=== PATIENT | female | born 1970 | race Caucasian/White ===

== ENCOUNTER 2025-06-09 00:46 | Day surgery (SDC) | payer OTHER, SELFPAY ==
[2025-05-25 14:34] VITALS: BMI 51.5
[2025-06-09 07:50] VITALS: BP 148/92; PULSE 81; RESP 18; TEMP 36.5; O2SAT 97; BMI 50.9
[2025-06-09] MEDS: LACTATED RINGERS 1,000 ML 150 ML IV CONT (08:13)
[2025-06-09 08:16] LABS: BEDSIDEPREGUCG Negative (Negative)
--- NOTE | 2025-06-09 08:43 | PM.HPGS ---
History of Present Illness History of Present Illness Consent: Risks, benefits, and alternatives have been discussed and questions answered. Patient agrees to proceed with procedure. Chief complaint: Screening Narrative: Arline Grady is a 54 year old female here for screening colonoscopy, last one 11 years ago Review of Systems Review of Systems: All systems reviewed & are unremarkable except as noted in HPI and below PMFSH Past Medical History Medical History (Updated 12/04/24 @ 09:29 by Yang Mcmahon APRN) TRUNG (obstructive sleep apnea) Horseshoe kidney PIH ( induced hypertension) A-fib Morbid obesity Surgical History Surgical History (Updated 12/02/24 @ 13:18 by Yang Mcmahon APRN) History of delivery History of cholecystectomy H/O left nephrectomy Family History Family History (Updated 12/02/24 @ 13:20 by Yang Mcmahon APRN) Father Emphysema of lung COPD (chronic obstructive pulmonary disease) Mother Diabetes mellitus Hypertension COVID-19 Bronchitis Pneumonia Heart disease Sibling No problems noted. Social History Social History (Updated 12/02/24 @ 13:21 by Yang Mcmahon APRN) Smoking packs per day: 0.5 Smoking cigarettes per day: 10.0 Years smoked: 15 Smoking pack-years: 7.50 Smoking status: Former smoker Tobacco type: cigarettes Second hand tobacco smoke exposure: No Alcohol intake: never Alcohol use details: rare social Substance use: never Substance use type: does not use Do You Feel Safe in your Home?: Yes Lack of Transportation: No Lack of Food: Never True Current Housing: I Have Housing Concerned About Future Housing: No Difficulty Paying Gas/Electric Bills: No Difficulty Paying for Meds: No Currently Unemployed: No Education: Bachelor's Degree Difficulty w/ Childcare or Family Care: No Living arrangements: with family Occupation/Education: occupation 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 Gender identity (if verbalized by the patient): Female Sexual Orientation (if Verbalized by the Patient): Straight or Heterosexual Spiritual care concerns: No Meds Home Medications and Allergies Home Medications ?Medication ?Instructions ?Recorded ?Confirmed ?Type aspirin 81 mg tablet,delayed 81 mg PO DAILY 12/02/24 06/09/25 History release (Adult Low Dose Aspirin) cholecalciferol (vitamin D3) 50 50 mcg PO DAILY 12/02/24 06/09/25 History mcg (2,000 unit) capsule ibuprofen 200 mg capsule 800 mg PO Q6H PRN pain 12/02/24 06/09/25 History sour abraham extract 1,000 mg 3,600 mg PO DAILY 12/02/24 06/09/25 History capsule (Tart Abraham Extract) lisinopril 10 mg tablet 10 mg PO DAILY 05/25/25 06/09/25 History metoprolol succinate 25 mg 25 mg PO DAILY 05/25/25 06/09/25 History tablet,extended release 24 hr Allergies Allergy/AdvReac Type Severity Reaction Status Date / Time codeine AdvReac Intermediate Nausea Verified 06/09/25 07:59 Opioids - Morphine Analogues AdvReac Intermediate Rash Verified 06/09/25 07:59 Vital Signs Vital Signs - 24 hr 06/09/25 07:50 Temperature 97.7 F Pulse Rate 81 Respiratory Rate 18 Blood Pressure 148/92 H Pulse Oximetry 97 Oxygen Delivery Room Air Exam Const: General: comfortable and no acute distress HENMT: Face/Nose/Sinus: Normal nares present Eyes: General: appearance normal, both eyes and all related structures Neck: Neck: no JVD Resp: Auscultation: clear to auscultation bilaterally Cardio: Rate: regular rate Rhythm: regular rhythm GI: Inspection: non-distended GI Palp: Yes Soft to palpation Skin: General skin exam: normal color Extrem: General: normal to inspection Psych: Mental Status: mental status grossly normal Assessment and Plan Assessment and plan (1) Screening for colon cancer: Code(s): Z12.11 - Encounter for screening for malignant neoplasm of colon Status: Acute Assessment and Plan: colonoscopy
--- NOTE | 2025-06-09 09:00 | S_PTH ---
PATIENT: Arline Grady LOC: [facility]#:[id number] AGE/SX: 54/F ROOM: RE06/09/[address]: Scott Saenz MD : 1970 BED: DIS: 06/09/2025 SPEC #: [id number] RECD: 06/09/25 10:04 STATUS: GERRY CLAUDIO #: [id number] DAHLIA: 06/09/25 09:[address]: Scott Saenz DEPT: [facility] Surgical RECD BY: Tawanna Mosuqeda ENTERED: 06/09/25 10:05 SP TYPE: Surgical OTHR DR: Yang Mcmahon APRN Tissues: A - Colon Polypectomy Procedures: Hematoxylin and Eosin Stain Gross and Microscopic Level 4
[2025-06-09 09:01] VITALS: BP 88/60; PULSE 70; RESP 19; O2SAT 97
--- NOTE | 2025-06-09 09:06 | WPDANESEPPF ---
Anes - Initial Pre Proc Eval Procedure: Operation Date: 06/09/25 09:00 Proposed Procedures p Screening Colonoscopy - Scott Saenz MD Date/Time: 06/09/25 09:06 Surgeon: Scott Saenz MD Pre Op Diagnosis: Screening Patient Data Age: 54 Gender: F Height: 1.68 m Weight: 143.2 kg Last Vital Signs Temp 36.5 C 06/09/25 07:50 Pulse 81 06/09/25 07:50 Resp 18 06/09/25 07:50 BP 148/92 H 06/09/25 07:50 Pulse Ox 97 06/09/25 07:50 O2 Del Method Room Air 06/09/25 07:50 Allergies Allergy/AdvReac Type Severity Reaction Status Date / Time codeine AdvReac Intermediate Nausea Verified 06/09/25 07:59 Opioids - Morphine Analogues AdvReac Intermediate Rash Verified 06/09/25 07:59 Home Medications ?Medication ?Instructions ?Recorded ?Confirmed ?Type aspirin 81 mg tablet,delayed 81 mg PO DAILY 12/02/24 06/09/25 History release (Adult Low Dose Aspirin) cholecalciferol (vitamin D3) 50 50 mcg PO DAILY 12/02/24 06/09/25 History mcg (2,000 unit) capsule ibuprofen 200 mg capsule 800 mg PO Q6H PRN pain 12/02/24 06/09/25 History sour abraham extract 1,000 mg 3,600 mg PO DAILY 12/02/24 06/09/25 History capsule (Tart Abraham Extract) lisinopril 10 mg tablet 10 mg PO DAILY 05/25/25 06/09/25 History metoprolol succinate 25 mg 25 mg PO DAILY 05/25/25 06/09/25 History tablet,extended release 24 hr Laboratory Tests 06/09/25 08:14 POC Urine HCG, Qual Negative (Negative) Patient hx anesthesia problems: none Family hx anesthesia problems: none Results Review: All pre-operative results and documents have been reviewed as part of the pre-operative evaluation. [facility] Past Medical History Medical History (Updated 12/04/24 @ 09:29 by Yang Mcmahon APRN) TRUNG (obstructive sleep apnea) Horseshoe kidney PIH ( induced hypertension) A-fib Morbid obesity Surgical History Surgical History (Updated 12/02/24 @ 13:18 by Yang Mcmahon APRN) History of delivery History of cholecystectomy H/O left nephrectomy Family History Family History (Updated 12/02/24 @ 13:20 by Yang Mcmahon APRN) Father Emphysema of lung COPD (chronic obstructive pulmonary disease) Mother Diabetes mellitus Hypertension COVID-19 Bronchitis Pneumonia Heart disease Sibling No problems noted. Social History Social History (Updated 12/02/24 @ 13:21 by Yang Mcmahon APRN) Smoking packs per day: 0.5 Smoking cigarettes per day: 10.0 Years smoked: 15 Smoking pack-years: 7.50 Smoking status: Former smoker Tobacco type: cigarettes Second hand tobacco smoke exposure: No Alcohol intake: never Alcohol use details: rare social Substance use: never Substance use type: does not use Do You Feel Safe in your Home?: Yes Lack of Transportation: No Lack of Food: Never True Current Housing: I Have Housing Concerned About Future Housing: No Difficulty Paying Gas/Electric Bills: No Difficulty Paying for Meds: No Currently Unemployed: No Education: Bachelor's Degree Difficulty w/ Childcare or Family Care: No Living arrangements: with family Occupation/Education: occupation 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 Gender identity (if verbalized by the patient): Female Sexual Orientation (if Verbalized by the Patient): Straight or Heterosexual Spiritual care concerns: No Anes - Eval Final PreProcedure Day of Procedure 06/09/25 09:06 Patient weight: super morbidly obese Heart: regular rate and rhythm Lungs: clear to auscultation Airway: Mallampati scale class II Neurological: alert and oriented Last oral intake: >/= 8 hours ASA classification: IV Emergent: no Anesthetic plan: proceed Anesthesia type and monitoring: general GIVS and standard monitoring Results Review: All pre-operative results and documents have been reviewed as part of the pre-operative evaluation. Informed Consent: The patient's anesthetic plan and its attendant risks and benefits were discussed with the patient/family/POA. Questions were solicited and answers provided to the satisfaction of the patient/family/POA.
[2025-06-09 09:11] VITALS: BP 112/79; PULSE 65; RESP 19; O2SAT 98
[2025-06-09 09:21] VITALS: BP 140/86; PULSE 62; RESP 21; O2SAT 98
== END 2025-06-09 09:34 | disposition home or self-care (01) ==
PROVIDERS: Anesthesiology; PCP Nurse Practitioner; Referring Provider Nurse Practitioner; Visit Provider Internal Medicine Gastroenterology
PROC: 0DJD8ZZ Inspection of Lower Intestinal Tract, Via Natural or Artificial Opening Endoscopic (ICD-10-PCS; CPT 45378; principal; 2025-06-09 09:00)
DX: Z12.11 Encounter for screening for malignant neoplasm of colon (principal); D12.3 Benign neoplasm of transverse colon; K64.8 Other hemorrhoids; G47.33 Obstructive sleep apnea (adult) (pediatric); I48.91 Unspecified atrial fibrillation; E66.01 Morbid (severe) obesity due to excess calories; Z68.43 Body mass index [BMI] 50.0-59.9, adult; Z79.82 Long term (current) use of aspirin; Z79.1 Long term (current) use of non-steroidal anti-inflammatories (NSAID); Z98.890 Other specified postprocedural states; Z90.49 Acquired absence of other specified parts of digestive tract; Z87.891 Personal history of nicotine dependence; Z82.49 Family history of ischemic heart disease and other diseases of the circulatory system
CPT/HCPCS: 45380; 88305; J2704; J7120